=== PATIENT | male | born 1970 | race Two or more races ===

== ENCOUNTER 2022-10-10 19:22 | Emergency (ER) | payer BC, OTHER ==
[~2022-10-10] VITALS: Ht 175.3 cm; Wt 74.8 kg
--- NOTE | 2022-10-10 21:30 | NUR ---
bibs for h/a and body pain x 3 wks.
[2022-10-10] MEDS ORDERED: KETOROLAC TROMETHAMINE INJ 30 MG/ML VIAL ONE (22:19)
[2022-10-10] MEDS ORDERED: PSEUDOEPHEDRINE HCL 30 MG TABLET ONE (22:20)
[2022-10-10] MEDS ORDERED: PSEUDOEPHEDRINE HCL 30 MG TABLET PO ONE (22:30)
[2022-10-10] MEDS ORDERED: KETOROLAC TROMETHAMINE INJ 60 MG/2 ML VIAL IM ONE (22:30)
--- NOTE | 2022-10-10 23:29 | NUR ---
Patient discharged to home in stable condition. Written and verbal after care instructions given. Patient verbalizes understanding of instruction.
[2022-10-11 00:04] VITALS: BP 131/83
== END 2022-10-11 00:05 | disposition home or self-care (01) ==
LOC: ER 19:23
DX: J32.9 Chronic sinusitis, unspecified (principal)
CPT/HCPCS: 99283; 96372; J1885